=== PATIENT | female | born 1985 | race Caucasian/White ===

== ENCOUNTER 2019-07-22 04:25 | Inpatient (IN) | payer OTHER ==
[~2019-07-22] VITALS: Ht 172.7 cm; Wt 86.2 kg
[2019-07-22] MEDS ORDERED: OXYTOCIN/0.9 % SODIUM CHLORIDE 1,000 ML IV SCH ×2 (04:35→16:57)
[2019-07-22] MEDS ORDERED: NALBUPHINE HCL 10 MG/ML AMP IM PRN (04:45)
[2019-07-22] MEDS ORDERED: NALBUPHINE HCL 10 MG/ML AMP IVP PRN (04:45)
[2019-07-22] MEDS ORDERED: TERBUTALINE SULFATE 1 MG/ML VIAL SUBCUT ONE (04:45)
[2019-07-22] MEDS: LR 1,000 ML IV SCH ×2 (05:10→08:40)
[2019-07-22 05:48] VITALS: BP_SYST 129
[2019-07-22 06:55] LABS: BASOPHILS % (AUTO) 0.3 % (0.0-2.0); EOSINOPHILS % (AUTO) 0.6 % (0.0-4.0); HEMATOCRIT 36.4 % (36-48); HEMOGLOBIN 12.5 g/dL (12.0-16.0); LYMPHOCYTES # (AUTO) 1.9 K/uL (1.0-5.5); LYMPHOCYTES % (AUTO) 22.3 % (20.5-51.5); MEAN CORPUSCULAR HEMOGLOBIN 32 pg (27-31); MEAN CORPUSCULAR HGB CONC 35 % (32-36); MEAN CORPUSCULAR VOLUME 93 fL (79.0-98.0); MONOCYTES # (AUTO) 0.4 K/uL (0.0-1.0); MONOCYTES % (AUTO) 4.7 % (1.7-9.3); NEUTROPHILS # (AUTO) 6.3 K/uL (1.8-7.7); NEUTROPHILS % (AUTO) 72.1 % (40.0-70.0); PLATELET COUNT (AUTO) 188 K/uL (130-430); RED BLOOD CELL COUNT(AUTO) 3.94 MIL/uL (4.2-6.2); RED CELL DISTRIBUTION WIDTH 13.3 % (9.0-15.0); WHITE BLOOD COUNT (AUTO) 8.7 K/uL (4.8-10.8)
[2019-07-22] MEDS ORDERED: fentaNYL CITRATE/PF 100 MCG/2 ML AMP ONE (08:15)
[2019-07-22] MEDS ORDERED: ROPIVACAINE HCL/PF 0.2% 200 ML ONE (08:16)
[2019-07-22] MEDS ORDERED: DIPHENHYDRAMINE INJ 50 MG/ML VIAL IVP ONE (08:30)
[2019-07-22] MEDS ORDERED: DIPHENHYDRAMINE INJ 50 MG/ML VIAL ONE (08:41)
[2019-07-22] MEDS ORDERED: LR 500 ML IV ONE (08:44)
[2019-07-22] MEDS ORDERED: FENT2mCg/mL-ROPIVA0.2%/NS EPID 200 ML EP SCH (08:45)
[2019-07-22] MEDS ORDERED: OXYTOCIN/0.9 % SODIUM CHLORIDE 1,000 ML IV ONE (16:57)
[2019-07-22] MEDS ORDERED: HYDROcodone/ACETAMIN 5-325 MG TAB (NORCO/ VICODIN) PO PRN ×2 (17:00)
[2019-07-22] MEDS ORDERED: ANUSOL 1 EA SUPP.RECT (PREPARATION H) RC PRN (17:00)
[2019-07-22] MEDS ORDERED: METHYLERGONOVINE MALEATE 0.2 MG TABLET PO PRN (17:00)
[2019-07-22] MEDS ORDERED: DERMOPLAST SPRAY TP PRN (17:00)
[2019-07-22] MEDS ORDERED: WITCH HAZEL LEAF 1 MED.PAD MED.PAD TP PRN (17:00)
[2019-07-22] MEDS ORDERED: LANOLIN 7 GM OINT. TP PRN (17:00)
[2019-07-22] MEDS ORDERED: HYDROCORTISONE 0.5%, 28.35 GM TOPICAL CREAM TP PRN (17:00)
[2019-07-22] MEDS: IBUPROFEN 600 MG TABLET PO PRN (18:12)
[2019-07-22] MEDS: DOCUSATE SODIUM 100 MG CAPSULE PO PRN (18:12)
[2019-07-22] MEDS ORDERED: OXYCODONE/ACETAMINOPHEN 5-325 TABLET PO PRN (21:00)
[2019-07-22] MEDS ORDERED: SENNOSIDES/DOCUSATE SODIUM 1 TAB TABLET(SENOKOT-S) PO PRN (21:00)
[2019-07-22] MEDS: OXYCODONE/ACETAMINOPHEN 5-325 TABLET PO PRN (21:48)
[2019-07-23] MEDS: OXYCODONE/ACETAMINOPHEN 5-325 TABLET PO PRN ×4 (00:53→20:13)
[2019-07-23] MEDS: IBUPROFEN 600 MG TABLET PO PRN ×4 (07:11→18:20)
[2019-07-23 07:38] LABS: BASOPHILS % (AUTO) 0.2 % (0.0-2.0); EOSINOPHILS # (AUTO) 0.1 K/uL (0.0-0.4); EOSINOPHILS % (AUTO) 0.6 % (0.0-4.0); HEMATOCRIT 33.4 % (36-48); HEMOGLOBIN 11.4 g/dL (12.0-16.0); LYMPHOCYTES # (AUTO) 1.9 K/uL (1.0-5.5); LYMPHOCYTES % (AUTO) 14.9 % (20.5-51.5); MEAN CORPUSCULAR HEMOGLOBIN 32 pg (27-31); MEAN CORPUSCULAR HGB CONC 34 % (32-36); MEAN CORPUSCULAR VOLUME 94 fL (79.0-98.0); MONOCYTES # (AUTO) 0.7 K/uL (0.0-1.0); MONOCYTES % (AUTO) 5.5 % (1.7-9.3); NEUTROPHILS % (AUTO) 78.8 % (40.0-70.0); PLATELET COUNT (AUTO) 181 K/uL (130-430); RED BLOOD CELL COUNT(AUTO) 3.56 MIL/uL (4.2-6.2); RED CELL DISTRIBUTION WIDTH 13.8 % (9.0-15.0); WHITE BLOOD COUNT (AUTO) 12.7 K/uL (4.8-10.8)
[2019-07-23] MEDS ORDERED: MINERAL OIL 30 ML UDC PO ONE (12:38)
[2019-07-23] MEDS: DOCUSATE SODIUM 100 MG CAPSULE PO PRN (18:20)
[2019-07-24] MEDS: OXYCODONE/ACETAMINOPHEN 5-325 TABLET PO PRN (01:47)
[2019-07-24] MEDS: IBUPROFEN 600 MG TABLET PO PRN ×3 (06:24→12:00)
[2019-07-24] MEDS ORDERED: METHYLERGONOVINE MALEATE 0.2 MG TABLET PO ONE (12:00)
[2019-07-24] MEDS ORDERED: METHYLERGONOVINE MALEATE 0.2 MG TABLET ONE (12:24)
[2019-07-24] MEDS ORDERED: METHYLERGONOVINE MALEATE 0.2 MG TABLET PO SCH (17:00)
== END 2019-07-24 18:15 | disposition home or self-care (01) | DRG 807 ==
LOC: SPU 04:25
PROVIDERS: ADMIT Obstetrics & Gynecology; ATTEND Obstetrics & Gynecology
PROC: 10E0XZZ Delivery of Products of Conception, External Approach (ICD-10-PCS; principal; 2019-07-22)
PROC: 10907ZC Drainage of Amniotic Fluid, Therapeutic from Products of Conception, Via Natural or Artificial Opening (ICD-10-PCS; 2019-07-22)
PROC: 0HQ9XZZ Repair Perineum Skin, External Approach (ICD-10-PCS; 2019-07-22)
PROC: 3E0R3BZ Introduction of Anesthetic Agent into Spinal Canal, Percutaneous Approach (ICD-10-PCS; 2019-07-22)
PROC: 00HU33Z Insertion of Infusion Device into Spinal Canal, Percutaneous Approach (ICD-10-PCS; 2019-07-22)
DX: O70.0 First degree perineal laceration during delivery (principal); Z37.0 Single live birth; O69.81X0 Labor and delivery complicated by cord around neck, without compression, not applicable or unspecified; Z3A.39 39 weeks gestation of pregnancy
CPT/HCPCS: 36415; 81002-TC; 85025; 86592; 86886; 86900; 86901; J1200; J2300; J2590; J3010; J7120